=== PATIENT | male | born 1995 | race Caucasian/White ===

== ENCOUNTER 2020-05-22 03:41 | Emergency (ER) | payer BC, SELFPAY ==
--- NOTE | ~2020-05-22 | CT_ITS ---
EXAMINATION: CT brain wo con INDICATION: Transient alteration of awareness, vomiting COMPARISON: None TECHNIQUE: Standard unenhanced head CT. The dose-length product (DLP) was 605.33 mGy-cm. The mA was a djusted according to patient size. Iterative reconstruction technique was employed. FINDINGS: There is no intracranial hemorrhage, acute infarction, or abnormal mass lesion. The ventric les are normal. There is no abnormal mass effect or midline shift. The wells-white matter differentiat ion is normal. The basal cisterns are patent. The orbits are normal. The paranasal sinuses, mastoids and calvarium are normal. IMPRESSION: 1. No acute intracranial abnormality. Reviewed, dictated and finalized at location [facility]
[2020-05-22 03:52] VITALS: BP 129/83; PULSE 64; RESP 16; TEMP 36.6; O2SAT 100
[2020-05-22] MEDS: SODIUM CHLORIDE 0.9% IV 1,000 ML 999 ML IV CONT (03:59)
[2020-05-22 04:18] LABS: Basophils Percent Auto 0.3 % (0.2-1.2); Eosinophils Absolute Auto 0.1 K/mm3 (0-0.3); Eosinophils Percent Auto 0.6 % (0-4.4); Hematocrit 47.9 % (42.0-52.0); Hemoglobin 17.1 g/dL (14.0-18.0); Immature Granulocyte Absolute 0.04 K/mm3 (0.00-0.031); Immature Granulocyte Percent A 0.3 % (0-0.5); Lymphocytes Absolute Auto 0.37 K/mm3 (0.9-3.2); Lymphocytes Percent Auto 2.7 % (18.3-44.2); Mean Corpuscular HGB Conc 35.7 g/dl (32-36); Mean Corpuscular Hemoglobin 30.3 pg (26-34); Mean Corpuscular Volume 84.8 fl (80-100); Mean Platelet Volume 10.1 fl (7.4-10.4); Monocytes Absolute Auto 0.9 K/mm3 (0.1-0.6); Monocytes Percent Auto 6.4 % (2.6-8.5); Neutrophils Absolute Auto 12.3 K/mm3 (1.3-6.7); Neutrophils Percent Auto 89.7 % (45.5-73.1); Platelet Count Result 269 k/mm3 (150-375); Red Blood Count 5.65 M/mm3 (4.6-6.20); Red Cell Distribution Width 11.9 % (11.5-14.5); White Blood Count 13.7 K/mm3 (4.5-10.0)
[2020-05-22 04:24] LABS: Anion Gap 8 mmol/L (8-16); Blood Urea Nitrogen 21 mg/dL (9-20); Calcium 9.2 mg/dL (8.4-10.2); Carbon Dioxide 30 mmol/L (22-30); Chloride 101 mmol/L (98-107); Estimated CRCL calculation 101 ml/min; Estimated Glomerular Filt Rate > 60; Glucose 126 mg/dL (75-110); Potassium 4.1 mmol/L (3.4-5.0); Sodium 139 mmol/L (137-145)
--- NOTE | 2020-05-22 04:48 | ED.NAVMDI ---
HPI - Nausea/Vomiting/Diarrhea General Chief complaint: Nausea/Vomiting/Diarrhea Stated complaint: i think i might have food poisoning. N/V Time Seen by Provider: 05/22/20 03:52 History of Present Illness HPI Narrative: Patient is a 25-year-old male who presents ER with concerns for food poisoning. Reports he had eaten a bagel with locks on it and 2 hours later began to have upset stomach and then had multiple bouts of diarrhea as well as emesis. When he was vomiting he would get lightheaded and thinks is about to strike his head on the toilet. He then was leaving the bathroom when he lost consciousness and struck his head on the ground. He reports severe headache immediately afterwards. Currently only with mild headache. No loss of vision or abnormal hearing. No abdominal pain or nausea at this time. No blood in stool or emesis. Related Data Home Medications Medication Instructions Recorded Confirmed multivitamin 1 tablet PO DAILY 05/20/20 05/20/20 Allergies Allergy/AdvReac Type Severity Reaction Status Date / Time No Known Allergies Allergy Unknown Unverified 05/20/20 11:46 Review of Systems Review of Systems: All systems reviewed & are unremarkable except as noted in HPI and below Constitutional: Constitutional: Denies chills, Denies fever(s) and Denies weakness Gastrointestinal: Gastrointestinal: Reports abdominal pain, Reports diarrhea, Reports nausea and Reports vomiting Neurologic: Reports syncope, Denies focal weakness and Denies numbness PMFSH Past Medical History Medical History (Updated 05/22/20 @ 04:57 by Jose Marr MD) ADHD Surgical History Surgical History (Updated 05/22/20 @ 04:55 by Jose Marr MD) No pertinent past surgical history Family History Family History Father Hypertension Hemochromatosis Grandparent Diabetes mellitus Social History Social History Social History: 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 Graduates 08/2020. Smokeless tobacco user: chewing tobacco Smoking end date: 09/29/19 Alcohol intake: current Exam Narrative: Exam Narrative: GENERAL: Well-appearing, well-nourished, and in no acute distress. HEAD: Normocephalic, atraumatic. CHEST: Clear to auscultation. No respiratory distress. HEART: Regular rate and rhythm. Normal peripheral pulses. ABDOMEN: Soft, nontender, nondistended. EXTREMITIES: Normal range of motion. No edema. SKIN: Warm, dry, no rash. NEURO: Alert and oriented x3. PSYCH: Normal mood and affect. Course Course Emergency Course: Patient feels well. Informed of results. Discharge home. Vital Signs Vital signs: Vital Signs Temperature 97.9 F 05/22/20 03:52 Pulse Rate 64 05/22/20 03:52 Respiratory Rate 16 05/22/20 03:52 Blood Pressure 129/83 05/22/20 03:52 Pulse Oximetry 100 05/22/20 03:52 Temperature 97.9 F 05/22/20 03:52 Pulse Rate 64 05/22/20 03:52 Respiratory Rate 16 05/22/20 03:52 Blood Pressure 129/83 05/22/20 03:52 Pulse Oximetry 100 05/22/20 03:52 MDM - Nausea/Vomiting/Diarrhea Lab Data Result diagrams: 05/22/20 04:08 05/22/20 04:08 Labs: Lab Results 05/22/20 05/22/20 Range/Units 04:08 04:08 WBC 13.7 H (4.5-10.0) K/mm3 RBC 5.65 (4.6-6.20) M/mm3 Hgb 17.1 (14.0-18.0) g/dL Hct 47.9 (42.0-52.0) % MCV 84.8 (80-100) fl MCH 30.3 (26-34) pg MCHC 35.7 (32-36) g/dl RDW 11.9 (11.5-14.5) % Plt Count 269 (150-375) k/mm3 MPV 10.1 (7.4-10.4) fl Immature Gran % (Auto) 0.3 (0-0.5) % Neut % (Auto) 89.7 H (45.5-73.1) % Lymph % (Auto) 2.7 L (18.3-44.2) % Ritchie % (Auto) 6.4 (2.6-8.5) % Eos % (Auto) 0.6 (0-4.4) % Baso % (Auto) 0.3 (0.2-1.2) % Lymph # (Auto) 0.37 L (0.9-3.2) K/mm3 Ritchie # (Auto) 0.9 H (0.1-0.6) K/mm3 Eos # (Auto) 0.1 (0-0.3) K/
[2020-05-22 05:03] VITALS: BP 128/74; PULSE 74; RESP 16; TEMP 36.7; O2SAT 100
== END 2020-05-22 05:04 | disposition home or self-care (01) ==
PROVIDERS: Emergency Provider Emergency Medicine; Family Provider Family Medicine; PCP Family Medicine
DX: A05.9 Bacterial foodborne intoxication, unspecified (principal); Z87.891 Personal history of nicotine dependence
CPT/HCPCS: 36415; 70450; 80048; 85025; 96360; 99284; J7030